=== PATIENT | female | born 2000 | race American Indian/Alaskan Native ===

== ENCOUNTER 2022-05-01 19:09 | Outpatient (CLI) | payer MEDICAID, OTHER ==
[2022-05-01 19:39] VITALS: BP 108/65
[2022-05-01] MEDS ORDERED: LACTATED RINGERS 1,000 ML IV ONE (20:27)
[2022-05-01] MEDS ORDERED: ACETAMINOPHEN 325 MG TAB PO ONE (21:40)
--- NOTE | 2022-05-01 21:59 | Ultrasound Report ---
ULTRASOUND OBSTETRIC LIMITED ULTRASOUND BIOPHYSICAL PROFILE INDICATION / CLINICAL INFORMATION: WELLBEING. - Clinical Gestational Age (GA) in weeks, days: 36, 3 TECHNIQUE: Transabdominal. COMPARISON: None available. FINDINGS: BREATHING MOVEMENT = 2 GROSS BODY MOVEMENT = 2 TONE = 2 QUALITATIVE AMNIOTIC FLUID VOLUME = 2 TOTAL BIOPHYSICAL SCORE = 8/8 HEART RATE (beats per minute): 136 AMNIOTIC FLUID INDEX (cm) = 12.6 cm (normal = 7-24 cm) PRESENTATION: Cephalic. ADDITIONAL FINDINGS: Cervical length is 2.4 cm. IMPRESSION: 1. Biophysical Score = 8/8 Signer Name: Lilia Mcclellan MD Signed: 05/01/2022 9:55 PM Workstation Name: [id number]
[2022-05-02] MEDS ORDERED: FAMOTIDINE 20 MG/2 ML INJ IV ONE (01:10)
== END 2022-05-02 01:10 | disposition home or self-care (01) ==
LOC: TRG 19:09 → APU 19:13 → TRG 05-02 01:10
PROVIDERS: ATTEND Obstetrics & Gynecology
DX: O21.2 Late vomiting of pregnancy (principal); O26.893 Other specified pregnancy related conditions, third trimester; M54.9 Dorsalgia, unspecified; Z87.891 Personal history of nicotine dependence; Z3A.36 36 weeks gestation of pregnancy
CPT/HCPCS: 59025; 76815; 76819; 96365; J3490; 96360